=== PATIENT | male | born 1995 | race Caucasian/White ===

== ENCOUNTER 2020-02-21 01:45 | Emergency (ER) | payer OTHER ==
[~2020-02-21] VITALS: Ht 175.3 cm; Wt 108.9 kg
[~2020-02-21 01:45] MED LIST: ACLOVATE TP; ALBUTEROL2.5 MG/0.1 INH; BENADRYL25 MG PO; IBUPROFEN 800800 MG PO; KEFLEX500 MG PO; MEDROL DOSPAK21 TAB PO; OPTIVAR6 ML OP; PEPCID20 MG PO; PREDNISONE 20 M20 MG PO; PREDNISONE10 MG PO; PROAIR HFA8.5 GM INH; PROMETHAZINE D480 ML GT; PROVENTIL HFA6.7 G1; PROVENTIL HFA6.7 G1 INH; SARNA222 ML; TOBRAMYCIN SULFA5 ML OP; TRIAMCINOLONE A80 G2 TOP; VENTOLIN HFA 1818 GM INH; VENTOLIN HFA INH8 GM
[2020-02-21] MEDS ORDERED: TRIAMCINOLONE A80 G2 TOP (02:35)
[2020-02-21 02:40] VITALS: BP 147/60
== END 2020-02-21 02:40 | disposition home or self-care (01) ==
LOC: ER 01:45
DX: L30.9 Dermatitis, unspecified (principal); J45.909 Unspecified asthma, uncomplicated; F32.9 Major depressive disorder, single episode, unspecified; Z79.899 Other long term (current) drug therapy; Z91.010 Allergy to peanuts; Z91.018 Allergy to other foods; Z91.013 Allergy to seafood